=== PATIENT | male | born 1950 | race Caucasian/White ===

== ENCOUNTER 2017-08-05 15:19 | Emergency (ER) | END 2017-08-05 23:00 | disposition home or self-care (01) ==

== ENCOUNTER 2017-08-11 18:52 | Emergency (ER) | END 2017-08-12 03:15 | disposition home or self-care (01) ==

== ENCOUNTER 2019-02-06 11:15 | Emergency (ER) | payer MEDICARE, MEDICAID ==
[~2019-02-06] VITALS: Ht 165.1 cm; Wt 89.0 kg
[~2019-02-06 11:15] MED LIST: ASPI-817 PO; ATOR-2 PO; CALC667C4 PO; CLOP75TA27 PO; GLIP2.5T PO; LOSA100T15 PO; METO25TA4 PO; NEPH PO; SEVE800T7 PO; SIMV20TA PO
[2019-02-06 11:21] VITALS: Ht 165.1 cm; Wt 89.0 kg
[2019-02-06] MEDS ORDERED: SOD CHLORIDE 0.9% 1,000 ML IV ONE (14:00)
[2019-02-06 14:48] VITALS: BP 123/58; PULSE 65; RESP 20
== END 2019-02-06 15:32 | disposition home or self-care (01) ==
LOC: E/R 11:15
DX: I95.1 Orthostatic hypotension (principal); E86.9 Volume depletion, unspecified; D53.9 Nutritional anemia, unspecified; N18.6 End stage renal disease; E11.22 Type 2 diabetes mellitus with diabetic chronic kidney disease; I12.0 Hypertensive chronic kidney disease with stage 5 chronic kidney disease or end stage renal disease
CPT/HCPCS: 36415; 71045; 80048; 82962; 84484; 85025; 85610; 93005; 99285; J7030